=== PATIENT | male | born 1950 | race Caucasian/White ===

== ENCOUNTER 2021-11-13 14:50 | Outpatient (REF) | payer MEDICARE, SELFPAY ==
[2021-11-13 15:11] LABS: MANUAL DIFF FLAG NO
[2021-11-13 15:48] LABS: Basophils Percent Auto 0.2 % (0-2); Hematocrit 42.5 % (42.0-52.0); Hemoglobin 14.6 g/dl (14.0-18.0); Imm Gran Abs Auto 0.57 X10*3/uL (0.00-0.03); Imm Gran Pct Auto 4.9 % (0.0-0.4); Lymphocytes Absolute Auto 0.5 X10*3/uL (1.2-4.9); Lymphocytes Percent Auto 3.9 % (20-40); Mean Corpuscular HGB Conc 34.4 g/dl (31.0-36.0); Mean Corpuscular Hemoglobin 30.9 pg (27.0-33.0); Mean Platelet Volume 9.8 fL (9.4-12.4); Monocytes Percent Auto 8.6 % (2-11); NRBC Pct Auto 0.2 /100WBC (0.0-0.2); Neutrophils Absolute Auto 9.7 x10*3/uL (2.0-8.3); Neutrophils Percent Auto 82.4 % (45-73); Platelet Count 202 X10*3/uL (160-400); Red Blood Count 4.72 X10*6/uL (4.60-5.80); Red Cell Distribution Width 17.2 % (11.0-16.0); White Blood Count 11.7 X10*3/uL (4.8-10.8)
[2021-11-13 15:57] LABS: Estimated Average Glucose 157 mg/dL; Hemoglobin A1c % 7.1 %
[2021-11-13 16:10] LABS: Alanine Aminotransferase 101 U/L (0-40); Albumin Level 3.8 g/dL (3.5-5.0); Alkaline Phosphatase 85 U/L (39-117); Anion Gap 15 (12-20); Aspartate Amino Transferase 36 U/L (5-37); Bilirubin Total 0.7 mg/dL (0.0-1.0); Blood Urea Nitrogen 35 mg/dL (9-16); Calcium 8.7 mg/dL (8.4-10.2); Carbon Dioxide 22 mmol/L (22-29); Chloride 97 mmol/L (96-108); Estimated Glomerular Filt Rate > 60; Glucose Random 192 mg/dL (60-115); Potassium 4.6 mmol/L (3.3-5.1); Sodium 129 mmol/L (135-145); Total Protein 6.1 g/dL (6.5-8.0)
[2021-11-13 16:15] LABS: B Type Natriuretic Peptide 312 pg/mL (<100)
[2021-11-13 16:31] LABS: Free T4 (Free Thyroxine) 0.61 ng/dL (0.71-1.85); Prostate Specific Antigen Scr 0.13 ng/mL (<0.05-4.0); Thyroid Stimulating Hormone 0.58 uIU/mL (0.32-4.0); Vitamin D 25-OH Total 36.2 ng/mL (>30)
[2021-11-13 16:41] LABS: Folate 5.3 ng/mL (> or = 4.0); Vitamin B12 483 pg/mL (200-900)
== END 2021-11-13 14:51 | disposition home or self-care (01) ==
LOC: HO.LAB 14:50
PROVIDERS: PCP Internal Medicine; Visit Provider Internal Medicine
DX: Z12.5 Encounter for screening for malignant neoplasm of prostate (principal); I25.10 Atherosclerotic heart disease of native coronary artery without angina pectoris; I48.0 Paroxysmal atrial fibrillation; R73.02 Impaired glucose tolerance (oral); D46.9 Myelodysplastic syndrome, unspecified
CPT/HCPCS: 36415; 80053; 82306; 82607; 82746; 83036; 83880; 84153; 84439; 84443; 85025

== ENCOUNTER 2021-11-21 15:01 | Outpatient (REF) | payer MEDICARE, SELFPAY ==
[2021-11-21 15:18] LABS: MANUAL DIFF FLAG NO
[2021-11-21 15:21] LABS: Basophils Percent Auto 0.1 % (0-2); Hematocrit 38.5 % (42.0-52.0); Hemoglobin 13.1 g/dl (14.0-18.0); Imm Gran Abs Auto 0.43 X10*3/uL (0.00-0.03); Imm Gran Pct Auto 4.3 % (0.0-0.4); Lymphocytes Absolute Auto 0.8 X10*3/uL (1.2-4.9); Mean Corpuscular Hemoglobin 31.1 pg (27.0-33.0); Mean Corpuscular Volume 91.4 fL (80.0-98.0); Mean Platelet Volume 9.8 fL (9.4-12.4); Monocytes Absolute Auto 0.6 X10*3/uL (0.1-1.2); Neutrophils Absolute Auto 8.1 x10*3/uL (2.0-8.3); Neutrophils Percent Auto 81.6 % (45-73); Platelet Count 156 X10*3/uL (160-400); Red Blood Count 4.21 X10*6/uL (4.60-5.80); Red Cell Distribution Width 18.1 % (11.0-16.0); White Blood Count 9.9 X10*3/uL (4.8-10.8)
[2021-11-21 15:42] LABS: Alanine Aminotransferase 49 U/L (0-40); Albumin Level 3.6 g/dL (3.5-5.0); Alkaline Phosphatase 101 U/L (39-117); Anion Gap 16 (12-20); Aspartate Amino Transferase 24 U/L (5-37); Bilirubin Total 0.4 mg/dL (0.0-1.0); Blood Urea Nitrogen 29 mg/dL (9-16); Calcium 8.5 mg/dL (8.4-10.2); Carbon Dioxide 23 mmol/L (22-29); Chloride 102 mmol/L (96-108); Estimated Glomerular Filt Rate > 60; Glucose Random 196 mg/dL (60-115); Lactate Dehydrogenase 378 U/L (118-273); Potassium 3.9 mmol/L (3.3-5.1); Sodium 137 mmol/L (135-145); Total Protein 5.6 g/dL (6.5-8.0)
== END 2021-11-21 15:02 | disposition home or self-care (01) ==
LOC: HO.LAB 15:01
PROVIDERS: PCP Internal Medicine; Visit Provider Internal Medicine
DX: I48.91 Unspecified atrial fibrillation (principal); D89.813 Graft-versus-host disease, unspecified; I42.2 Other hypertrophic cardiomyopathy; R56.9 Unspecified convulsions; D46.9 Myelodysplastic syndrome, unspecified; I25.10 Atherosclerotic heart disease of native coronary artery without angina pectoris; E78.00 Pure hypercholesterolemia, unspecified; C83.30 Diffuse large B-cell lymphoma, unspecified site
CPT/HCPCS: 36415; 80053; 83615; 85025

== ENCOUNTER 2022-01-23 09:38 | Outpatient (REF) | payer MEDICARE, SELFPAY ==
--- NOTE | ~2022-01-23 | MM_ITS ---
EXAMINATION: BONE DENSITOMETRY CLINICAL INDICATION: Age-related osteoporosis without current pathological fracture. COMPARISON: None (current study represents initial baseline exam). TECHNIQUE: Using a Tipzu DXA System (software version: 13.1) manufactured by [employer], dual-energy x-ray absorptiometry was performed of the lumbar spine and left hip. The images are of good technical quality. Summary results are attached. FINDINGS: AP SPINE L1-L4: BMD 1.273 g/cm2, Z-score 1.0, T-score 0.4, normal. LEFT FEMUR, NECK: BMD 0.826 g/cm2, Z-score -0.6, T-score -1.9, osteopenia. LEFT FEMUR, TOTAL: BMD 0.979 g/cm2, Z-score -0.1, T-score -0.9, normal. IDENTIFIED RISK FACTORS: Height loss, secondary osteoporosis, history of fracture (adult), anticonvulsants, glucocorticoids (chronic). HISTORY OF FRACTURE: Wrist. MEDICATIONS: Vitamin D. MM/XR DEXA axial skeleton IMPRESSION: 1. DIAGNOSIS: Osteopenia based on the lowest T-score value of -1.9 in the femoral neck applying World Health Organization criteria. 2. 10-YEAR FRACTURE RISK PREDICTION, FRAX: Major osteoporotic fracture (clinical spine, forearm, hip or shoulder) 10.3%. Hip fracture 3.0%. 3. Treatment Recommendations: NOF guidelines recommend consideration for treatment in postmenopausal women and men age 50 and older presenting with the following: -A hip or vertebral (clinical or morphometric) fracture. -T-score less than or equal to -2.5 at the femoral neck or spine after appropriate evaluation to exclude secondary causes. -Low bone mass at the hip or spine and a 10-year fracture probability by FRAX of greater than or equal to 3% for hip fracture or greater than or equal to 20% for major osteoporotic fracture based on the [place] adapted WHO algorithm. 4. Other Recommendations: All treatment decisions require clinical judgment and consideration of individual patient factors, including patient preferences, comorbidities, previous drug use, risk factors not captured in the FRAX model (e.g. frailty, falls, vitamin D deficiency, increased bone turnover, interval significant decline in bone density) and possible under or overestimation of fracture risk by FRAX. Additional medical evaluation for secondary cause of low bone mineral density may be appropriate. FUTURE SCAN RECOMMENDATION: People with diagnosed cases of osteoporosis or at high risk for fracture should have regular bone mineral density tests. For patients eligible for Medicare, routine testing is allowed once every 2 years. The testing frequency can be increased to one year for patients who have rapidly progressing disease, those who are receiving or discontinuing medical therapy to restore bone mass, or have additional risk factors.
== END 2022-01-23 09:39 | disposition home or self-care (01) ==
LOC: HO.MAMMO 09:38
PROVIDERS: PCP Internal Medicine; Visit Provider Internal Medicine
DX: Z13.820 Encounter for screening for osteoporosis (principal); C83.30 Diffuse large B-cell lymphoma, unspecified site; D46.Z Other myelodysplastic syndromes; E29.1 Testicular hypofunction; M81.0 Age-related osteoporosis without current pathological fracture
CPT/HCPCS: 77080

== ENCOUNTER 2022-01-30 08:47 | Day surgery (SDC) | payer MEDICARE, SELFPAY ==
--- NOTE | ~2022-01-30 | IR_ITS ---
EXAMINATION: IR PORT-A-CATH REMOVAL CLINICAL INFORMATION: Port no longer needed. COMPARISON: None. TECHNIQUE/FINDINGS: Procedure and risks including infection were discussed with the patient and informed consent was obtained. All elements of maximal sterile barrier technique followed including use of cap, mask, sterile gown, sterile gloves, a sterile full body drape and hand hygiene. Also followed skin preparation with 2% chlorhexidine for cutaneous antisepsis, and sterile ultrasound preparation with sterile gel and probe cover when applicable. The right upper chest over the port was prepped and draped in the usual sterile fashion. The skin and soft tissues were anesthetized with 1% lidocaine plain. A small incision was made over the port. Using blunt dissection, port and catheter were dissected from the surrounding soft tissues and removed. The incision was closed using four 3-0 absorbable interrupted sutures followed by a running 4-0 absorbable subcuticular suture. The patient received Versed 0.5 mg and fentanyl 50 mcg intravenously during the procedure. Total sedation time was 15 minutes. No fluoroscopic images. IR/IR cvc remove tunnel w prt/assembler chassis IMPRESSION: Right internal jugular Port-A-Cath removal.
[2022-01-30 09:29] VITALS: BMI 22.5
[2022-01-30 09:33] LABS: MANUAL DIFF FLAG NO
[2022-01-30 09:37] LABS: Basophils Percent Auto 0.1 % (0-2); Eosinophils Percent Auto 0.4 % (0-4); Hematocrit 38.3 % (42.0-52.0); Hemoglobin 12.7 g/dl (14.0-18.0); Imm Gran Pct Auto 1.2 % (0.0-0.4); Lymphocytes Absolute Auto 1.4 X10*3/uL (1.2-4.9); Lymphocytes Percent Auto 16.8 % (20-40); Mean Corpuscular HGB Conc 33.2 g/dl (31.0-36.0); Mean Corpuscular Volume 99.5 fL (80.0-98.0); Mean Platelet Volume 9.2 fL (9.4-12.4); Monocytes Absolute Auto 0.9 X10*3/uL (0.1-1.2); Monocytes Percent Auto 11.1 % (2-11); NRBC Pct Auto 0.2 /100WBC (0.0-0.2); Neutrophils Percent Auto 70.4 % (45-73); Platelet Count 230 X10*3/uL (160-400); Red Blood Count 3.85 X10*6/uL (4.60-5.80); Red Cell Distribution Width 17.5 % (11.0-16.0); White Blood Count 8.5 X10*3/uL (4.8-10.8)
[2022-01-30 09:59] LABS: INTERNATIONAL NORM RATIO 0.9 (0.9-1.1); Prothrombin Time 10.7 SEC (10.0-13.1)
[2022-01-30 10:02] LABS: Partial Thromboplastin Time 25.7 SEC (26.0-36.4)
--- NOTE | 2022-01-30 11:36 | P.RADPN_ITS ---
RADIOLOGY Narrative Narrative: RIJ port removed.
--- NOTE | 2022-01-30 11:36 | HO.RADPN ---
RADIOLOGY Narrative Narrative: RIJ port removed.
[2022-01-30 11:45] VITALS: BP 129/68; PULSE 64; RESP 16; TEMP 36.7; O2SAT 95
[2022-01-30 12:00] VITALS: BP 129/68; PULSE 64; RESP 16; O2SAT 95
[2022-01-30 12:15] VITALS: BP 119/67; PULSE 63; RESP 18; O2SAT 95
[2022-01-30 12:30] VITALS: BP 115/65; PULSE 64; RESP 18; TEMP 36.7; O2SAT 95
== END 2022-01-30 13:04 | disposition home or self-care (01) ==
PROVIDERS: Radiology Diagnostic Radiology; PCP Internal Medicine; Visit Provider Radiology Diagnostic Radiology
PROC: (CPT 36590; principal; 2022-01-30 10:30)
DX: Z45.2 Encounter for adjustment and management of vascular access device (principal); D89.813 Graft-versus-host disease, unspecified; D46.9 Myelodysplastic syndrome, unspecified; C83.30 Diffuse large B-cell lymphoma, unspecified site; I25.10 Atherosclerotic heart disease of native coronary artery without angina pectoris; I42.2 Other hypertrophic cardiomyopathy; I48.0 Paroxysmal atrial fibrillation; I82.491 Acute embolism and thrombosis of other specified deep vein of right lower extremity; E78.00 Pure hypercholesterolemia, unspecified; N40.0 Benign prostatic hyperplasia without lower urinary tract symptoms; R73.02 Impaired glucose tolerance (oral); Z79.899 Other long term (current) drug therapy; Z87.898 Personal history of other specified conditions; Z88.8 Allergy status to other drugs, medicaments and biological substances; Z91.040 Latex allergy status; Z91.041 Radiographic dye allergy status
CPT/HCPCS: 36415; 36590; 85025; 85610; 85730; 99152; J2250; J3010

== ENCOUNTER 2022-03-30 12:43 | Outpatient (REF) | payer MEDICARE, SELFPAY ==
--- NOTE | 2022-03-30 13:31 | HM_ITS ---
Conclusion: 1. Patient was monitored for total period of 2 days 2. Baseline was normal sinus rhythm with average heart rate 68 beats per minute 3. Frequent PACs with total burden of 11% of total beats 4. Frequent short runs of supraventricular tachycardia with longest episode lasting 40 beats at 158 beats per minute 5. No significant pauses or bradycardia noted 6. Patient reported 1 event correlated with isolated PAC MTDD
[2022-03-30 14:22] LABS: Digoxin 0.4 ng/mL (0.8-2.0)
== END 2022-03-30 12:44 | disposition home or self-care (01) ==
LOC: HO.WFDLDS 12:43
PROVIDERS: Visit Provider Family Medicine
DX: I48.0 Paroxysmal atrial fibrillation (principal); I49.9 Cardiac arrhythmia, unspecified
CPT/HCPCS: 36415; 80162; 93226

== ENCOUNTER → 2022-03-30 14:10 | Outpatient (REF) | payer MEDICARE, SELFPAY | LOC: HO.CARD 14:10 | PROVIDERS: Visit Provider Family Medicine | DX: Z13.89 Encounter for screening for other disorder (principal) ==

== ENCOUNTER → 2022-04-25 13:59 | Outpatient (BNVA) | payer MEDICARE, SELFPAY | PROVIDERS: PCP Internal Medicine; Visit Provider Internal Medicine | DX: I48.0 Paroxysmal atrial fibrillation (principal); I42.8 Other cardiomyopathies; I49.8 Other specified cardiac arrhythmias; I31.9 Disease of pericardium, unspecified; I25.2 Old myocardial infarction; Z79.899 Other long term (current) drug therapy | CPT/HCPCS: 99202 ==

== ENCOUNTER → 2022-09-14 13:07 | Outpatient (REF) | payer MEDICARE, SELFPAY ==
--- NOTE | 2022-09-14 13:09 | HM_ITS ---
* Total monitoring time about 3 days. * Underlying rhythm is sinus. Average ventricular rate 71/Min. Range 61 to 129/Min. * Occasional supraventricular ectopy with low burden. Brief runs noted. Probable atrial fibrillation. * Occasional ventricular ectopy. Some couplets. Short runs of 7-9 beats, but cannot exclude supraventricular etiology. * No sustained arrhythmias. * No significant pauses or AV blocks. * No patient markers or diary events. MTDD
== END ==
LOC: HO.CARD 13:07
PROVIDERS: PCP Internal Medicine; Visit Provider Internal Medicine
DX: I48.0 Paroxysmal atrial fibrillation (principal)
CPT/HCPCS: 93242

== ENCOUNTER 2023-01-14 10:48 | Outpatient (AMB) | payer MEDICARE, SELFPAY ==
[2023-01-14 10:53] VITALS: BP 110/62; PULSE 82; O2SAT 98; BMI 23.7
--- NOTE | 2023-01-14 10:53 | MHC.PC.OV ---
Vital Signs 01/14/23 10:53 Height 6 ft Weight 174 lb 13.225 oz BMI 23.7 BP 110/62 Blood Pressure Location Lt brachial Position Sitting Pulse 82 Pulse Source Pulse Oximeter Temp Source Skin Pulse Oximetry (%) 98 Oxygen Delivery Method Room Air Intake Visit Reasons: lymphoma, tongue pain Health And Safety Trainer Required: No Allergies Iodinated Contrast Media [IV CONTRAST] Allergy (Severe, Verified 01/14/23 10:59) HIVES; SWELLING colchicine Allergy (Intermediate, Verified 01/14/23 10:59) Vomiting palifermin [From KEPIVANCE] Allergy (Intermediate, Verified 01/14/23 10:59) RASH cat dander Allergy (Unknown, Verified 01/14/23 10:59) UNKNOWN mold Allergy (Unknown, Verified 01/14/23 10:59) UNKNOWN ceftazidime Allergy (Verified 01/14/23 10:59) unknown CT contrast dye Allergy (Unknown, Uncoded 01/14/23 10:59) hives, swelling IVP Contrast/Dye Allergy (Unknown, Uncoded 01/14/23 10:59) unknown Mold,dust mites cat hair Allergy (Unknown, Uncoded 01/14/23 10:59) unknown PLATELETS Adverse Reaction (Mild, Uncoded 01/14/23 10:59) HIVES/ PT GETS PREMEDICATED WITH 25 MG BENADRYL PO ONLY Medication List - Last Reconciled 01/14/23 by Bereket Banks MD acetaminophen (Tylenol Extra Strength) 500 mg PO Q6H PRN acyclovir 400 mg PO TID bimatoprost 0.01% (Lumigan) 1 drp ophthalmic (eye) DAILY carboxymethylcellulose sodium 0.25% (TheraTears) 1 drp ophthalmic (eye) BID cholecalciferol (vitamin D3) 50 mcg PO DAILY clobetasol 0.05% 1 appl topical BID diphenhydramine HCl (Benadryl Allergy) 25 mg PO BEDTIME PRN finasteride 5 mg PO DAILY 90 days levetiracetam (Keppra) 750 mg PO BID lorazepam 0.5 mg PO DAILY PRN magnesium oxide 400 mg PO TID methylphenidate HCl 5 mg PO BID metoprolol succinate ER (Toprol XL) 25 mg PO DAILY nystatin 5 mL PO TID 7 days omeprazole 20 mg PO DAILY pilocarpine HCl 5 mg PO TID prednisone mg PO prochlorperazine maleate (Compazine) 10 mg PO DAILY PRN simvastatin 10 mg PO BEDTIME sulfamethoxazole-trimethoprim 400-80 mg 1 tab PO DAILY tacrolimus 0.1% 1 appl topical BID testosterone transdermal testosterone (Androderm) transdermal Tobacco use date assessed: 01/14/23 Fall risk assessment: No Falls in past year Last assessed Fall Risk: 01/14/23 Dental Screening Dental Screen Date: 01/14/23 Did you have a dental visit in the last 12 months?: Yes Did you have a dental problem in the last 6 months where you did not have access to dental care?: No Was dental information given to patient?: Patient has dentist HPI lymphoma, tongue pain HPI Details 72-year-old male with multiple medical problems diffuse large B-cell lymphoma hypertrophic cardiomyopathy atrial fibrillation coronary artery disease BPH hypercholesterolemia coming in for follow-up. Last seen in September 2022. complains of tongue numbness on clobetasol with Nystatin . part GVHD. still on the testosterone patch. problem with tongue still there . has the g tub for jevity. [facility] Medical History (Updated 09/28/22 @ 12:10 by Bereket Banks MD) COVID-19 virus infection Colon cancer screening Adult general medical exam Screening for hyperlipidemia Screening for diabetes mellitus Screening for prostate cancer Abnormal blood sugar Hip osteoarthritis Retinal tear Therapy-related myelodysplastic syndrome History of seizure Thrombocytopenia Hypertrophic cardiomyopathy BPH (benign prostatic hyperplasia) Hypercholesterolemia Diffuse large B cell lymphoma Surgical History H/O vitrectomy History of colectomy History of colonoscopy History of right hip replacement Hx of appendectomy Hx of cholecystectomy S/P TURP Social History Housing: House Alcohol intake: never Patient Tobacco Use Status: Never used Tobacco e-Cigarette/Vaping Use: Never Used Second Hand Smoke Exposure: No service: No Current occupational status: retired Cognitive needs: Yes (walker, transport chair, cane) Hearing needs: Yes (hearing aide) Vision needs: Yes (reading glasses) Questionnaire Thrive Questionnaire Date Thrive assessed: 05/28/22 AUDIT C Alcohol Use Questionnaire (AUDIT-C) 1. How often do you have a drink containing alcohol?: Never 3. How often do you have six or more drinks on one occasion?: Never Total Score: 0 SARIKA-7 AMB Questionnaire SARIKA-7 Date SARIKA - 7 assessed: 05/28/22 Source: Developed by Drs. Tadeo Walter, Josselin Ugalde, Jesus Yoder and colleagues, with an educational julio from [employer]. Physical exam (Primary Care) Vital Signs: Last Vital Signs Pulse 82 01/14/23 10:53 BP 110/62 01/14/23 10:53 Pulse Ox 98 01/14/23 10:53 Oxygen Delivery Method Room Air 01/14/23 10:53 BMI result Body Mass Index 23.7 Tobacco/Smoking Status: Tobacco use Status Tobacco use date assessed 01/14/23 01/14/23 10:54 Patient Tobacco Use Status Never used Tobacco 01/14/23 10:54 e-Cigarette/Vaping Use Never Used 01/14/23 10:54 Thrive Assessment: Date of Thrive Assessment Date Thrive assessed 05/28/22 01/14/23 10:54 Const General: alert; No acute distress Eyes Conjunctivae: conjunctivae normal Resp Auscultation: clear to auscultation bilaterally Cardio Rate: regular rate Rhythm: regular rhythm GI Inspection: Yes normal to inspection Extrem General: Yes normal to inspection and No edema Assessment and Plan Assessment & Plan (1) Diffuse large B cell lymphoma: Comment: Two thousand [age] R [facility]OP, biopsy June 2016 auto transplant April 2017 [facility]. 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 Be it pork or beef they have a lot of cholesterol on simvastatin 10 mg at bedtime (5) BPH (benign prostatic hyperplasia): Code(s): N40.0 - Benign prostatic hyperplasia without lower urinary tract symptoms Qualifiers: Lower urinary tract symptom presence: symptoms present Lower urinary tract symptom detail: urinary frequency Qualified Code(s): N40.1 - Benign prostatic hyperplasia with lower urinary tract symptoms; R35.0 - Frequency of micturition Plan: Continue with finasteride 5 mg once a day (6) Impaired glucose tolerance: Comment: Due to Decadron Code(s): R73.02 - Impaired glucose tolerance (oral) Plan: Decrease the amount of carbohydrate intake, pasta, bread, rice and potatoes are all sugar and that is aside from all the sweet stuff, remember that fruits are good but they are Sweet also. (7) Hypertrophic cardiomyopathy: Code(s): I42.2 - Other hypertrophic cardiomyopathy Plan: Continue with metoprolol 25 mg once a day (8) Coronary artery disease: Code(s): I25.10 - Atherosclerotic heart disease of [place] coronary artery without angina pectoris Plan: Control the cholesterol, weight, blood pressure Coding Level of Care Code Est Pt Level 4 (83514) Diagnoses Diffuse large B-cell lymphoma, unspecified body region C83.30 Lymphoma site: unspecified region GVHD (graft versus host disease) D89.813 Paroxysmal atrial fibrillation I48.0 Hypercholesterolemia E78.00 Benign prostatic hyperplasia with urinary frequency N40.1; R35.0 Lower urinary tract symptom presence: symptoms present Lower urinary tract symptom detail: urinary frequency Impaired glucose tolerance R73.02 Hypertrophic cardiomyopathy I42.2 Coronary artery disease I25.10
== END 2023-01-14 11:35 | disposition home or self-care (01) ==
PROVIDERS: PCP Internal Medicine; Visit Provider Internal Medicine
DX: C83.30 Diffuse large B-cell lymphoma, unspecified site (principal); D89.813 Graft-versus-host disease, unspecified; I48.0 Paroxysmal atrial fibrillation; I42.2 Other hypertrophic cardiomyopathy; E78.00 Pure hypercholesterolemia, unspecified; N40.1 Benign prostatic hyperplasia with lower urinary tract symptoms; R35.0 Frequency of micturition; R73.02 Impaired glucose tolerance (oral); I25.10 Atherosclerotic heart disease of native coronary artery without angina pectoris
CPT/HCPCS: 99214

== ENCOUNTER 2023-02-07 09:49 | Outpatient (AMB) | payer MEDICARE, SELFPAY ==
[2023-02-07 09:50] VITALS: BP 110/68; PULSE 89; O2SAT 96; BMI 23.9
--- NOTE | 2023-02-07 09:50 | A.OFFVIS_ITS ---
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 Lecturer Required: No Allergies Iodinated Contrast Media [IV CONTRAST] Allergy (Severe, Verified 02/07/23 10:08) HIVES; SWELLING colchicine Allergy (Intermediate, Verified 02/07/23 10:08) Vomiting palifermin [From KEPIVANCE] Allergy (Intermediate, Verified 02/07/23 10:08) RASH cat dander Allergy (Unknown, Verified 02/07/23 10:08) UNKNOWN mold Allergy (Unknown, Verified 02/07/23 10:08) UNKNOWN ceftazidime Allergy (Verified 02/07/23 10:08) unknown CT contrast dye Allergy (Unknown, Uncoded 02/07/23 10:08) hives, swelling IVP Contrast/Dye Allergy (Unknown, Uncoded 02/07/23 10:08) unknown Mold,dust mites cat hair Allergy (Unknown, Uncoded 02/07/23 10:08) unknown PLATELETS Adverse Reaction (Mild, Uncoded 02/07/23 10:08) HIVES/ PT GETS PREMEDICATED WITH 25 MG BENADRYL PO ONLY Medication List - Last Reconciled 02/07/23 by TODD Quintero acetaminophen (Tylenol Extra Strength) 500 mg PO Q6H PRN acyclovir 400 mg PO TID bimatoprost 0.01% (Lumigan) 1 drp ophthalmic (eye) DAILY carboxymethylcellulose sodium 0.25% (TheraTears) 1 drp ophthalmic (eye) BID cholecalciferol (vitamin D3) 50 mcg PO DAILY clobetasol 0.05% 1 appl topical BID diphenhydramine HCl (Benadryl Allergy) 25 mg PO BEDTIME PRN finasteride 5 mg PO DAILY 90 days levetiracetam (Keppra) 750 mg PO BID lorazepam 0.5 mg PO DAILY PRN magnesium oxide 400 mg PO TID methylphenidate HCl 5 mg PO BID metoprolol succinate ER (Toprol XL) 25 mg PO DAILY nystatin 5 mL PO TID 7 days omeprazole 20 mg PO DAILY pilocarpine HCl 5 mg PO TID prednisone mg PO prochlorperazine maleate (Compazine) 10 mg PO DAILY PRN simvastatin 10 mg PO BEDTIME sulfamethoxazole-trimethoprim 400-80 mg 1 tab PO DAILY tacrolimus 0.1% 1 appl topical BID testosterone transdermal testosterone (Androderm) transdermal Fall Risk Assessment Fall risk assessment: No Falls in past year Date Fall Risk Assessed: 02/07/23 HPI swv [id number] HPI Details Patient is a 72-year-old male who presents today for subsequent wellness visit. Patient of Dr. Banks. Today we discussed patient's need for lipid panel, diabetes screening and prostate cancer screening. Cologuard negative 11/2021. A1c 7.1 10/2021, patient reports this is due to him being on prednisone and he denies diabetes. [place] of care was reviewed with the patient and he was provided with a screening schedule. MOLST form is on file and he will provide office with a healthcare proxy form. Patient is accompanied by his . [facility] Medical History (Updated 02/07/23 @ 13:34 by TODD Quintero) STEMI (ST elevation myocardial infarction) Screening for diabetes mellitus Screening for prostate cancer Left humeral fracture COVID-19 virus infection Colon cancer screening Adult general medical exam Screening for hyperlipidemia Abnormal blood sugar Hip osteoarthritis Retinal tear Therapy-related myelodysplastic syndrome History of seizure Thrombocytopenia Hypertrophic cardiomyopathy BPH (benign prostatic hyperplasia) Hypercholesterolemia Diffuse large B cell lymphoma Surgical History History of colonoscopy History of right hip replacement H/O vitrectomy Hx of appendectomy Hx of cholecystectomy History of colectomy S/P TURP Social History Housing: House Alcohol intake: never Patient Tobacco Use Status: Never used Tobacco e-Cigarette/Vaping Use: Never Used Second Hand Smoke Exposure: No service: No Current occupational status: retired Cognitive needs: Yes (walker, transport chair, cane) Hearing needs: Yes (hearing aide) Vision needs: Yes (reading glasses) Questionnaire Medicare Wellness Checkup What [age]?: 71-79 (71) What gender do you identify with?: male During the past 4 weeks, how much have you been bothered by emotional problems such as feeling anxious, depressed, irritable, sad or downhearted, and blue?: not at all During the past 4 weeks, has your physical & emotional health limited your social activities with family, friends, neighbors, or groups?: extremely During the past 4 weeks, how much bodily pain have you generally had?: moderate pain During the past 4 weeks, was someone available to help you if you needed & wanted help?: yes, as much as I wanted During the past 4 weeks, what was the hardest physical activity you could do for at least 2 minutes?: light Can you get to places out of walking distance without help? (For eg., can you travel alone on buses, taxis or drive your car?): No Can you go shopping for groceries or clothes without someone's help?: No Can you prepare your own meals?: No Can you do your housework without help?: No Because of any health problems, do you need the help of another person with your personal care needs such as eating, bathing, dressing or getting around the house?: Yes Can you handle your own money without help?: Yes During the past 4 weeks, how would you rate your health in general?: fair During the past 4 weeks how have things been going for you?: pretty bad Are you having difficulties driving your car?: not applicable, I don't use a car Do you always fasten your seat belt when you are in a car?: yes, usually During past 4 weeks, have you been bothered by the following: never: Teeth or d enture problems?, sometimes: Falling or dizzy when standing up and Problems using the telephone? and always: Sexual problems?, Trouble eating well? and Tiredness or fatigue? Have you fallen 2 or more times in the past year?: Yes Are you afraid of falling?: Yes Are you a smoker?: no During the past 4 weeks, how many drinks of wine, beer, or other alcoholic beverages did you have?: no alcohol at all Do you exercise for about 20 minutes 3 or more times a week?: no, I usually do not exercise this much Have you been given information to help with the following?: yes: Hazards in your house that might hurt you? and yes: Keeping track of your medications? How often do you have trouble taking medicines the way you have been told to take them?: I always take medicine as prescribed How confident are you that you can control & manage most of your health problems?: not very confident What is your race?: White Mini Mental State Exam (MMSE) Orientation What is the (year) (season) (date) (day) (month)?: year, season, date, day and month Score Score: 5 Activity of Daily Living Bathing - sponge bath, tub bath or shower: receives no assistance (gets in/out by self, if usual bathing means Dressing - getting clothes from closets & drawers, including inner/outer garments & fasteners.: gets clothes & gets completely dressed without help Toileting - going to the 'toilet room' for urine/bowel elimination & cleaning self/arranging clothes: goes to toilet room, cleans self, arranges clothes without help Transfer: moves in & out of bed and chair without help (may use support object) Continence: controls urination/bowel movements completely by self Feeding: feeds self without help Total Score: 0 Information obtained from: patient Using telephone: independent Traveling: dependent Shopping: dependent Preparing meals: dependent Housework: dependent Taking medicine: needs assistance Managing money: dependent PHQ-9 Over the last 2 weeks, how often have you been bothered by any of the following problems? 1. Little interest or pleasure in doing things: not at all 2. Feeling down, depressed, or hopeless: not at all 3. Trouble falling or staying asleep, or sleeping too much: not at all 4. Feeling tired or having little energy: nearly every day 5. Poor appetite or overeating: nearly every day 6. Feeling bad about yourself - or that you are a failure or have let yourself or your family down: not at all 7. Trouble concentrating on things, such as reading the newspaper or watching television: several days 8. Moving or speaking so slowly that other people could have noticed. Or the opposite - being so fidgety or restless that you have been moving around a lot more than usual: nearly every day 9. Thoughts that you would be better off or of hurting yourself in some way: not at all Total score: 10 Depression Screening Interpretation: Negative Depression Screening Done: Yes 28150 - PHQ-9 Billing: Yes Source: Developed by Drs. Tadeo Walter, Jesus Mary and colleagues, with an educational julio from [employer]. SARIKA-7 AMB Questionnaire SARIKA-7 Date SARIKA - 7 assessed: 02/07/23 Source: Developed by Drs. Tadeo Walter, Jesus Mary and colleagues, with an educational julio from [employer]. AUDIT C Alcohol Use Questionnaire (AUDIT-C) 1. How often do you have a drink containing alcohol?: Never 3. How often do you have six or more drinks on one occasion?: Never Total Score: 0 Score Reviewed/Action Taken: No Thrive Questionnaire Date Thrive assessed: 05/28/22 Physical Exam Vital Signs: Last Vital Signs Pulse 89 02/07/23 09:50 BP 110/68 02/07/23 09:50 Pulse Ox 96 02/07/23 09:50 Oxygen Delivery Method Room Air 02/07/23 09:50 BMI result Body Mass Index 23.9 Const General: cooperative and no acute distress Orientation/consciousness: patient oriented x3 HEENT Other: Whisper test: fail Neuro Other: Balance: Normal - patient is in a wheelchair Get up and walk: unable to Romberg: negative Tandem gait: unable to General: patient oriented x3 Assessment & Plan Assessment & Plan (1) Adult general medical exam: Code(s): Z00.00 - Encounter for general adult medical examination without abnormal findings (2) Paroxysmal atrial fibrillation: Code(s): I48.0 - Paroxysmal atrial fibrillation Plan: Continue to follow-up with cardiology Dr. 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 Pérez (4) Therapy-related myelodysplastic syndrome: Code(s): D46.Z - Other myelodysplastic syndromes Plan: Continue to follow-up with Neuro-Oncology Dr. Vega (5) History of seizure: Code(s): Z87.898 - Personal history of other specified conditions Plan: Patient is on Keppra, continue to follow-up with Neuro-Oncology (6) BPH (benign prostatic hyperplasia): Code(s): N40.0 - Benign prostatic hyperplasia without lower urinary tract symptoms Qualifiers: Lower urinary tract symptom presence: symptoms present Lower urinary tract symptom detail: urinary frequency Qualified Code(s): N40.1 - Benign prostatic hyperplasia with lower urinary tract symptoms; R35.0 - Frequency of micturition Plan: On finasteride 5 mg daily (7) Hypercholesterolemia: Code(s): E78.00 - Pure hypercholesterolemia, unspecified Plan: Continue current treatment. (8) Diffuse large B cell lymphoma: Comment: Two thousand sixteen R CHOP, biopsy June 2016 auto transplant April 2017 [facility]. February 2020 note in remission Code(s): C83.30 - Diffuse large B-cell lymphoma, unspecified site Qualifiers: Lymphoma site: unspecified region Qualified Code(s): C83.30 - Diffuse large B-cell lymphoma, unspecified site Plan: Continue to follow-up with Dr. Pérez (9) Hypogonadism in male: Code(s): E29.1 - Testicular hypofunction Plan: Patient is on testosterone. (10) Impaired glucose tolerance: Comment: Due to Decadron Code(s): R73.02 - Impaired glucose tolerance (oral) Plan: A1c ordered (11) Screening for prostate cancer: Code(s): Z12.5 - Encounter for screening for malignant neoplasm of prostate (12) Screening for diabetes mellitus: Code(s): Z13.1 - Encounter for screening for diabetes mellitus Orders: Orders Basic Metabolic Panel Fasting Today Z13.1 - Encounter for screening for diabetes mellitus Lipid Panel Today E78.00 - Pure hypercholesterolemia, unspecified Hemoglobin A1c Today Z13.1 - Encounter for screening for diabetes mellitus Prostate Specific Antigen Today Z12.5 - Encounter for screening for malignant neoplasm of prostate Quality Reporting (2019) Fall Risk Screening ([facility] 139) Last assessed Fall Risk: 02/07/23 Fall risk assessment: No Falls in past year Depression/Bipolar (159/160/161/177) PHQ-9: Total score: 10 Coding Level of Care Code Medicare Subsequent (G0439) Diagnoses Adult general medical exam Z00.00 Paroxysmal atrial fibrillation I48.0 GVHD (graft versus host disease) D89.813 Therapy-related myelodysplastic syndrome D46.Z History of seizure Z87.898 Benign prostatic hyperplasia with urinary frequency N40.1; R35.0 Lower urinary tract symptom presence: symptoms present Lower urinary tract symptom detail: urinary frequency Hypercholesterolemia E78.00 Diffuse large B-cell lymphoma, unspecified body region C83.30 Lymphoma site: unspecified region Hypogonadism in male E29.1 Impaired glucose tolerance R73.02 Screening for prostate cancer Z12.5 Screening for diabetes mellitus Z13.1 CPT Codes Advance Care Planning - Advance Care Planning discussion: On file, no changes ([id number]) Advance Care Planning - Time spent: 1-15 minutes, on File ([id number]) Advance Care Planning Advance Care Planning discussion: On file, no changes Date of discussion: 02/07/23 Who was present: pt, , nonprofit financial controller Forms completed: None Time spent: 1-15 minutes, on File Actual minutes spent: 1 Did not discuss due to Cultural/Spiritual beliefs: No
== END 2023-02-07 10:31 | disposition home or self-care (01) ==
PROVIDERS: Visit Provider Nurse Practitioner Family
DX: Z00.00 Encounter for general adult medical examination without abnormal findings (principal)
CPT/HCPCS: 1123F; G0439

== ENCOUNTER 2023-04-02 10:29 | Outpatient (AMB) | payer MEDICARE, SELFPAY ==
[2023-04-02 10:49] VITALS: BP 102/56; PULSE 80; BMI 23.3
--- NOTE | 2023-04-02 10:49 | MHC.OFFVIS ---
Intake Vital Signs 04/02/23 10:49 Height 6 ft Weight 172 lb BMI 23.3 BP 102/56 L Blood Pressure Location Lt brachial Position Sitting Pulse 80 Pulse Source Monitor Intake Visit Reasons: follow up Allergies Iodinated Contrast Media [IV CONTRAST] Allergy (Severe, Verified 04/02/23 10:52) HIVES; SWELLING colchicine Allergy (Intermediate, Verified 04/02/23 10:52) Vomiting palifermin [From KEPIVANCE] Allergy (Intermediate, Verified 04/02/23 10:52) RASH cat dander Allergy (Unknown, Verified 04/02/23 10:52) UNKNOWN mold Allergy (Unknown, Verified 04/02/23 10:52) UNKNOWN ceftazidime Allergy (Verified 04/02/23 10:52) unknown CT contrast dye Allergy (Unknown, Uncoded 02/07/23 10:08) hives, swelling IVP Contrast/Dye Allergy (Unknown, Uncoded 02/07/23 10:08) unknown Mold,dust mites cat hair Allergy (Unknown, Uncoded 02/07/23 10:08) unknown PLATELETS Adverse Reaction (Mild, Uncoded 02/07/23 10:08) HIVES/ PT GETS PREMEDICATED WITH 25 MG BENADRYL PO ONLY Medication List - Last Reconciled 04/02/23 by Brock Garcia MD acyclovir 400 mg PO TID bimatoprost 0.01% (Lumigan) 1 drp ophthalmic (eye) DAILY carboxymethylcellulose sodium 0.25% (TheraTears) 1 drp ophthalmic (eye) BID cholecalciferol (vitamin D3) 50 mcg PO DAILY clobetasol 0.05% 1 appl topical BID diphenhydramine HCl (Benadryl Allergy) 25 mg PO BEDTIME PRN finasteride 5 mg PO DAILY 90 days gabapentin (Neurontin) 300 mg PO BID levetiracetam (Keppra) 750 mg PO BID lorazepam 0.5 mg PO DAILY PRN magnesium oxide 400 mg PO TID methylphenidate HCl 5 mg PO BID metoprolol succinate ER 25 mg PO DAILY nystatin 5 mL PO TID 7 days omeprazole 20 mg PO DAILY pilocarpine HCl 5 mg PO TID prednisone mg PO prochlorperazine maleate (Compazine) 10 mg PO DAILY PRN simvastatin 10 mg PO BEDTIME sulfamethoxazole-trimethoprim 400-80 mg 1 tab PO DAILY tacrolimus 0.1% 1 appl topical BID testosterone transdermal testosterone (Androderm) transdermal HPI HPI Comments History of Present Illness Details Samuel returns for follow-up. Very complex history. In the past, he was seen in our clinic around 2018. Has seen [facility] intermittently after that, but he would like to switch back to us. He really does not have any clear-cut cardiac symptoms like angina or shortness of breath or palpitations or in fact anything else of that nature. With regard to atrial fibrillation itself, he has been on beta-blockers as well as amiodarone in the past but they have been off for quite some time. More recently, beta-blockers were then resumed. He also has history of intracranial bleeding while on Eliquis and hence off all anticoagulation. He also has a previously documented history of hypertrophic cardiomyopathy, but never really had any significant septal hypertrophy. Otherwise, has large B-cell lymphoma for which she has undergone chemotherapy as well as bone marrow transplantation. He has vlquf-oprlvk-jzln disease as well. He is extremely weak and generally deconditioned. Comes in a wheelchair. No definitive cardiac symptoms. [facility] Medical History (Updated 02/21/23 @ 10:43 by TODD Quintero) Leg weakness, bilateral STEMI (ST elevation myocardial infarction) Screening for diabetes mellitus Screening for prostate cancer Left humeral fracture COVID-19 virus infection Colon cancer screening Adult general medical exam Screening for hyperlipidemia Abnormal blood sugar Hip osteoarthritis Retinal tear Therapy-related myelodysplastic syndrome History of seizure Thrombocytopenia Hypertrophic cardiomyopathy BPH (benign prostatic hyperplasia) Hypercholesterolemia Diffuse large B cell lymphoma Surgical History History of colonoscopy History of right hip replacement H/O vitrectomy Hx of appendectomy Hx of cholecystectomy History of colectomy S/P TURP Social History Housing: House Alcohol intake: never Patient Tobacco Use Status: Never used Tobacco e-Cigarette/Vaping Use: Never Used Second Hand Smoke Exposure: No service: No Current occupational status: retired Cognitive needs: Yes (walker, transport chair, cane) Hearing needs: Yes (hearing aide) Vision needs: Yes (reading glasses) Review of Systems ENT Reports dizziness Card Denies chest pain, Denies chest pain at rest, Denies chest pain with activity, Denies rapid heart rate, Denies pedal edema, Denies edema, Denies leg edema, Denies lightheadedness, Denies palpitations, Denies dyspnea, Denies dyspnea on exertion and Denies orthopnea Resp Denies cough, Denies dyspnea and Denies dyspnea on exertion GI Denies hematochezia and Denies change in stool character Musc Denies abnormal gait, Reports limited range of motion, Reports muscle cramps, Denies muscle weakness, Denies numbness, Denies radiating pain into limb, Denies stiffness and Denies tingling Neuro Denies Abnormal speech present, Denies abnormal gait, Reports dizziness, Denies numbness and Denies tingling Endo Denies palpitations Physical Exam Vital Signs: Last Vital Signs Pulse 80 04/02/23 10:49 BP 102/56 L 04/02/23 10:49 BMI result Body Mass Index 23.3 Const General: cooperative, comfortable, no acute distress, ill appearing and tired appearing Orientation/consciousness: patient oriented x3 HEENT Other: Unremarkable Head: Yes normal to inspection Neck Neck: Yes normal visual inspection Chest Chest palpation & inspection: normal inspection of the chest Resp Auscultation: clear to auscultation bilaterally Cardio Palpation: normal PMI Heart sounds: S1 normal heart sound present, S2 normal heart sound present, no gallops, no murmurs and no rubs GI Palpation (GI): Soft to palpation Back/Spine/Pelvis Other: unremarkable Skin General skin exam: no rashes or lesions noted Neuro General: patient oriented x3 Speech: No Abnormal speech present Extrem General: Yes normal to inspection Psych Mental Status: mental status grossly normal Office Procedures EKG Details: EKG with sinus rhythm at 80/Min; mild diffuse ST elevation that looks like early repolarization[place] [id number], Complete Assessment & Plan Assessment & Plan (1) Paroxysmal atrial fibrillation: Code(s): I48.0 - Paroxysmal atrial fibrillation (2) Nonischemic cardiomyopathy: Code(s): I42.8 - Other cardiomyopathies (3) Atrial arrhythmia: Code(s): I49.8 - Other specified cardiac arrhythmias (4) Pericarditis: Code(s): I31.9 - Disease of pericardium, unspecified Plan Echocardiogram from [facility], June 2021-LVEF 60-65%; mild concentric LVH without any wall motion abnormalities. Mitral annular calcification without any significant valvular dysfunction. Sinus of Valsalva size was 4.3 cm, ascending aortic size 3.9 cm. Based on the comment, improved LVEF compared to 10/2020. Most recent Holter with underlying sinus rhythm. Occasional supraventricular ectopy with very brief runs of probable atrial fibrillation. Otherwise, anterior STEMI, 08/2020. At that time, had catheterization, but did not have any significant obstructive disease. Then pericarditis was suspected. Then noted to have asymptomatic paroxysmal atrial fibrillation. At some point, LVEF has been as low as 50%. There is also reports of moderate mitral regurgitation. Overall, in summary, asymptomatic paroxysmal atrial fibrillation but likely low burden, frequent atrial ectopy, mild cardiomyopathy with recovered LVEF, pericarditis, low blood pressure, deconditioning. For medications, discontinue the beta-blockers that was resumed recently. He seems to be tolerating it. Due to history of intracranial bleed on Eliquis as well as other neurological issues related to his lymphoma, will hold off on that. Otherwise, due to difficulty in transportation extra, he will come to our clinic as necessary. Discussed with in full detail. Coding Level of Care Code Est Pt Level 4 (10623) Diagnoses Paroxysmal atrial fibrillation I48.0 Nonischemic cardiomyopathy I42.8 Atrial arrhythmia I49.8 Pericarditis I31.9 CPT Codes EKG - CPT: 52613-[id number], Complete ([id number])
== END 2023-04-02 11:56 | disposition home or self-care (01) ==
PROVIDERS: PCP Internal Medicine; Visit Provider Internal Medicine
DX: I48.0 Paroxysmal atrial fibrillation (principal); I42.8 Other cardiomyopathies; I49.8 Other specified cardiac arrhythmias; I31.9 Disease of pericardium, unspecified
CPT/HCPCS: 93010; 99214

== ENCOUNTER → 2023-04-02 10:29 | Outpatient (BNVA) | payer MEDICARE, SELFPAY | PROVIDERS: PCP Internal Medicine; Visit Provider Internal Medicine | DX: I48.0 Paroxysmal atrial fibrillation (principal); I42.8 Other cardiomyopathies; I49.8 Other specified cardiac arrhythmias; I31.9 Disease of pericardium, unspecified | CPT/HCPCS: 93005; 99212 ==

== ENCOUNTER 2023-05-02 10:47 | Outpatient (AMB) | payer MEDICARE, SELFPAY ==
[2023-05-02 10:48] VITALS: BP 104/68; PULSE 98; O2SAT 94; BMI 24.4
--- NOTE | 2023-05-02 10:48 | A.OFFPC_ITS ---
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 Allergies Iodinated Contrast Media [IV CONTRAST] Allergy (Severe, Verified 05/02/23 10:54) HIVES; SWELLING colchicine Allergy (Intermediate, Verified 05/02/23 10:54) Vomiting palifermin [From KEPIVANCE] Allergy (Intermediate, Verified 05/02/23 10:54) RASH cat dander Allergy (Unknown, Verified 05/02/23 10:54) UNKNOWN mold Allergy (Unknown, Verified 05/02/23 10:54) UNKNOWN ceftazidime Allergy (Verified 05/02/23 10:54) unknown CT contrast dye Allergy (Unknown, Uncoded 05/02/23 10:54) hives, swelling IVP Contrast/Dye Allergy (Unknown, Uncoded 05/02/23 10:54) unknown Mold,dust mites cat hair Allergy (Unknown, Uncoded 05/02/23 10:54) unknown PLATELETS Adverse Reaction (Mild, Uncoded 05/02/23 10:54) HIVES/ PT GETS PREMEDICATED WITH 25 MG BENADRYL PO ONLY Medication List - Last Reconciled 05/02/23 by Bereket Banks MD acyclovir 400 mg PO TID 90 days bimatoprost 0.01% (Lumigan) 1 drp ophthalmic (eye) DAILY carboxymethylcellulose sodium 0.25% (TheraTears) 1 drp ophthalmic (eye) BID cholecalciferol (vitamin D3) 50 mcg PO DAILY clobetasol 0.05% 1 appl topical BID diphenhydramine HCl (Benadryl Allergy) 25 mg PO BEDTIME PRN finasteride 5 mg PO DAILY 90 days gabapentin (Neurontin) 300 mg PO TID levetiracetam (Keppra) 750 mg PO BID lorazepam 0.5 mg PO DAILY PRN magnesium oxide 400 mg PO TID methylphenidate HCl 5 mg PO BID metoprolol succinate ER 25 mg PO DAILY nystatin 5 mL PO TID 7 days omeprazole 20 mg PO DAILY pilocarpine HCl 5 mg PO TID prednisone mg PO prochlorperazine maleate (Compazine) 10 mg PO DAILY PRN simvastatin 10 mg PO BEDTIME sulfamethoxazole-trimethoprim 400-80 mg 1 tab PO DAILY tacrolimus 0.1% 1 appl topical BID testosterone transdermal testosterone (Androderm) transdermal Tobacco use date assessed: 05/02/23 Fall risk assessment: No Falls in past year Last assessed Fall Risk: 05/02/23 Dental Screening Dental Screen Date: 05/02/23 HPI lymphoma HPI Details 72-year-old male with multiple medical p roblems patient has a history 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 Last seen in January 2023. Review of the notes March 2023 follows up with Cardiology no cardiac symptoms on beta blockers as well as amiodarone had intracranial bleeding while on Eliquis and hence off anticoagulation history of anterior STEMI August 2020 catheterization no significant obstructive disease. blood work done 04/2023 psa n, LDL aic 6.7 on Jevita LDL 361 MRI done , no new masses. was advised mild antidepressant advised . placed on gabapentin but did not help with the highert dose - would get sleepy neurologist has seen him and has recommended a different medication that can help with pain also and I discussed with the family that might be Cymbalta that they are talking about. Otherwise they need refill on the acyclovir. They will be seeing the Gastroenterology for the gastric tube. Patient on Jevity and concern about the diabetes diagnosis A1c is 6.7 this was in April 2023 COUNT INCLUDES THE [facility] Medical History (Updated 05/02/23 @ 11:30 by Bereket Banks MD) Leg weakness, bilateral STEMI (ST elevation myocardial infarction) Screening for diabetes mellitus Screening for prostate cancer Left humeral fracture COVID-19 virus infection Colon cancer screening Adult general medical exam Screening for hyperlipidemia Abnormal blood sugar Hip osteoarthritis Retinal tear Therapy-related myelodysplastic syndrome History of seizure Thrombocytopenia Hypertrophic cardiomyopathy BPH (benign prostatic hyperplasia) Hypercholesterolemia Diffuse large B cell lymphoma Surgical History History of colonoscopy History of right hip replacement H/O vitrectomy Hx of appendectomy Hx of cholecystectomy History of colectomy S/P TURP Social History Housing: House Alcohol intake: never Patient Tobacco Use Status: Never used Tobacco e-Cigarette/Vaping Use: Never Used Second Hand Smoke Exposure: No service: No Current occupational status: retired Cognitive needs: Yes (walker, transport chair, cane) Hearing needs: Yes (hearing aide) Vision needs: Yes (reading glasses) Questionnaire PHQ-9 Over the last 2 weeks, how often have you been bothered by any of the following problems? 1. Little interest or pleasure in doing things: not at all 2. Feeling down, depressed, or hopeless: not at all 3. Trouble falling or staying asleep, or sleeping too much: not at all 4. Feeling tired or having little energy: not at all 5. Poor appetite or overeating: not at all 6. Feeling bad about yourself - or that you are a failure or have let yourself or your family down: not at all 7. Trouble concentrating on things, such as reading the newspaper or watching television: not at all 8. Moving or speaking so slowly that other people could have noticed. Or the opposite - being so fidgety or restless that you have been moving around a lot more than usual: not at all 9. Thoughts that you would be better off or of hurting yourself in some way: not at all Total score: 0 Depression Screening Interpretation: Negative Depression Screening Done: Yes 61175 - PHQ-9 Billing: Yes Source: Developed by Drs. Tadeo Walter, Josselin Ugalde, Jesus Yoder and colleagues, with an educational julio from [email or web address]. Thrive Questionnaire Date Thrive assessed: 05/02/23 I am a: Patient What is your living situation today?: I have a steady place to live Within the past 12 months, did the food you bought not last and you didn't have the money to get more?: Never true Within the past 12 months, did you worry whether your food would run out before you got money to buy more?: Never true Do you have trouble paying for medicines?: No Do you have trouble getting transportation to medical appointments?: No Do you have trouble paying your heating and electricity bill?: No Do you have trouble taking care of your child, family member or friend?: No Do you have trouble with day-to-day activities such as bathing, preparing meals, shopping, managing finances, etc.?: No Are you currently unemployed and looking for a job?: No Are you interested in more education?: No AUDIT C Alcohol Use Questionnaire (AUDIT-C) 1. How often do you have a drink containing alcohol?: Never 3. How often do you have six or more drinks on one occasion?: Never Total Score: 0 Score Reviewed/Action Taken: No SARIKA-7 AMB Questionnaire SARIKA-7 Date SARIKA - 7 assessed: 05/02/23 Feeling nervous, anxious, or on edge: 0 = Not at all Not being able to stop or control worryin = Not at all Worrying too much about different things: 0 = Not at all Trouble relaxin = Not at all Being so restless that it is hard to sit still: 0 = Not at all Becoming easily annoyed or irritable: 0 = Not at all Feeling afraid as if something awful might happen: 0 = Not at all Total SARIKA-7 score (0-4 normal; 5-9 mild; 10-14 moderate; 15-21 severe): 0 Source: Developed by Drs. Tadeo Walter, Josselin Ugalde, Jesus Yoder and colleagues, with an educational julio from [email or web address]. Physical exam (Primary Care) Vital Signs: Last Vital Signs Pulse 98 05/02/23 10:48 BP 104/68 05/02/23 10:48 Pulse Ox 94 05/02/23 10:48 Oxygen Delivery Method Room Air 05/02/23 10:48 BMI result Body Mass Index 24.4 Tobacco/Smoking Status: Tobacco use Status Tobacco use date assessed 05/02/23 05/02/23 10:50 Patient Tobacco Use Status Never used Tobacco 05/02/23 10:50 e-Cigarette/Vaping Use Never Used 05/02/23 10:50 PHQ-9: PHQ-9 Score PHQ-9: Total score 0 05/02/23 10:50 Depression Screening Interpretation: Negative Thrive Assessment: Date of Thrive Assessment Date Thrive assessed 05/02/23 05/02/23 10:59 Const General: alert; No acute distress Eyes Conjunctivae: conjunctivae normal Resp Auscultation: clear to auscultation bilaterally Cardio Rate: regular rate Rhythm: regular rhythm GI Inspection: Yes normal to inspection Extrem General: Yes normal to inspection and No edema Assessment and Plan Assessment & Plan (1) Diffuse large B cell lymphoma: Comment: Two thousand [age] R CHOP, biopsy June 2016 auto transplant April 2017 [facility]. February 2020 note in remission Code(s): C83.30 - Diffuse large B-cell lymphoma, unspecified site Qualifiers: Lymphoma site: unspecified region Qualified Code(s): C83.30 - Diffuse large B-cell lymphoma, unspecified site Plan: Continue to follow-up with Hematology-Oncology (2) GVHD (graft versus host disease): Code(s): D89.813 - Napmq-eoedvw-jslb disease, unspecified Plan: Continue to follow-up with Hematology-Oncology (3) Paroxysmal atrial fibrillation: Code(s): I48.0 - Paroxysmal atrial fibrillation Plan: Patient has met with Cardiology due to the intracranial bleed anticoagulation is held. (4) Presence of IVC filter: Code(s): Z95.828 - Presence of other vascular implants and grafts Plan: Stable (5) Coronary artery disease: Code(s): I25.10 - Atherosclerotic heart disease of [place] coronary artery without angina pectoris Plan: Control the cholesterol, weight, blood pressure, diabetes post STEMI catheterization nonobstructive. (6) Hypercholesterolemia: Code(s): E78.00 - Pure hypercholesterolemia, unspecified Plan: Avoid fried foods, chicken skin, eggs, butter margarine, pastries and meat. Be it pork or beef they have a lot of cholesterol LDL goal of less than 70 and triglyceride of less than 150. blood work done TG 04/2023 290, HDL 58, LDL 100 non fasting (7) Type 2 diabetes mellitus with hyperglycemia: Code(s): E11.65 - Type 2 diabetes mellitus with hyperglycemia Medications: Changed From acyclovir 400 mg PO TID D89.813 - Rcrwx-rqhlbp-hicd disease, unspecified To acyclovir 400 mg PO TID 270 tabs 1RF 90 days D89.813 - Gwbpt-sxscds-knlo disease, unspecified Coding Level of Care Code Est Pt Level 4 (96542) Diagnoses Diffuse large B-cell lymphoma, unspecified body region C83.30 Lymphoma site: unspecified region GVHD (graft versus host disease) D89.813 Paroxysmal atrial fibrillation I48.0 Presence of IVC filter Z95.828 Coronary artery disease I25.10 Hypercholesterolemia E78.00 Type 2 diabetes mellitus with hyperglycemia E11.65
== END 2023-05-02 11:43 | disposition home or self-care (01) ==
PROVIDERS: PCP Internal Medicine; Visit Provider Internal Medicine
DX: E11.65 Type 2 diabetes mellitus with hyperglycemia (principal); C83.30 Diffuse large B-cell lymphoma, unspecified site; D89.813 Graft-versus-host disease, unspecified; I48.0 Paroxysmal atrial fibrillation; Z95.828 Presence of other vascular implants and grafts; I25.10 Atherosclerotic heart disease of native coronary artery without angina pectoris; E78.00 Pure hypercholesterolemia, unspecified
CPT/HCPCS: 99214

== ENCOUNTER → 2023-08-15 | Outpatient (RCR) | payer MEDICARE, SELFPAY ==
[2020-04-06] MEDS: Heparin Sodium,Porcine Flush 500 UNIT/5 ML SYRINGE IVFLUSH (15:56)
[2020-04-06 16:09] VITALS: BP 115/64; PULSE 65; RESP 18; TEMP 36.6; O2SAT 95; BMI 27.0
--- NOTE | 2021-11-21 15:17 | MHC.HEMONC ---
Pt here for port flush. Port accessed with blood return noted. Labs drawn from port-specimen to lab. Port flushed with heparin and de accessed. Pt and state pt will have port flushed at [facility] next time and will call if they require appointment. Declined discharge packet
== END | disposition home or self-care (01) ==
LOC: HO.ONC 04-06 15:21
PROVIDERS: PCP Internal Medicine; Visit Provider Internal Medicine Medical Oncology
DX: Z45.2 Encounter for adjustment and management of vascular access device (principal); C83.30 Diffuse large B-cell lymphoma, unspecified site
CPT/HCPCS: 36591; 96523; J1642